=== PATIENT | female | born 1980 | race Asian ===

== ENCOUNTER 2016-12-03 19:38 | Emergency (ER) | payer OTHER ==
[~2016-12-03] VITALS: Ht 162.6 cm; Wt 74.7 kg
[~2016-12-03 19:38] MED LIST: PRENTAB26 PO
[2016-12-03 19:48] VITALS: TEMP 37; O2SAT 99; Ht 162.6 cm; Wt 74.7 kg
[2016-12-03] MEDS ORDERED: TRIAMCINOLONE ACET 0.1% CR 15 GM TUBE EXT STA (20:13)
[2016-12-03] MEDS ORDERED: DOXY100C76 PO (20:15)
[2016-12-03] MEDS ORDERED: DOXYCYCLINE HYCLATE 100 MG CAP PO ONE (20:15)
[2016-12-03 21:05] VITALS: BP 116/72; PULSE 84
--- NOTE | 2016-12-03 21:13 | EMERGENCY ROOM VISIT NOTE ---
History Report prepared by Dulce: Kaushal Biswas Under the Supervision of: Dr. Sherif Turcios M.D. First contact with patient: 20:00 Chief Complaint: BITE Stated Complaint: L SHOULDER PAIN History of Present Illness The patient is a 35 year old female who presents to the Emergency Room with complaints of a persistent rash on her left shoulder starting about a week ago. She describes it to be itchy with a burning pain. She has been applying an anti- itch cream without relief. She denies fevers, chills, or any other complaints. Source of History: patient Onset: about a week ago Position: shoulder (left) Quality: burning, other (rash) Timing: other (persistent) Modifying Factors (Relieving): other (anti-itch cream without relief) Associated Symptoms: No fevers, No chills Review of Systems See HPI for pertinent positives & negatives. A total of 10 systems reviewed and were otherwise negative. Past Medical & Surgical Medical Problems: (1) Abdominal pain during in third trimester (2) Decreased movement in (3) Leakage, amniotic fluid (4) Nausea and vomiting in (5) Pneumonia affecting (6) (7) Premature uterine contractions in third trimester, antepartum (8) labor in third trimester (9) Uterine contractions Family History Patient reports no known family medical history. Social History Smoking Status: Never Smoker Alcohol Use: none Marital Status: , in relationship Housing Status: lives with family Occupation Status: employed Current/Historical Medications Scheduled Doxycycline Monohydrate (Monodox), 100 MG PO BID Loratadine/Pseudoephedrine (Claritin-D 24 Hour), 1 TAB PO QAM Montelukast Sodium (Singulair), 10 MG PO HS Multivitamin (Multivitamin), 1 TAB PO QAM Ranitidine Hcl (Zantac), 300 MG PO HS Allergies Coded Allergies: Morphine (Verified Allergy, Mild, "CAN'T BREATHE" - PT THINKS WAS GIVEN TOO MUCH, 12/03/16) Physical Exam Vital Signs Date Time Temp Pulse Resp B/P (MAP) Pulse Ox O2 Delivery O2 Flow Rate FiO2 12/03/16 21:05 84 20 116/72 12/03/16 19:48 37.0 91 18 125/79 99 Room Air Physical Exam GENERAL: Patient is a healthy-appearing well-nourished HEAD: Normocephalic atraumatic EYES: Ocular movements intact pupils equal and react to light OROPHARYNX mucous membranes are moist no exudates present no erythema or edema present NECK: Supple no nuchal rigidity CHEST: Good equal expansion LUNGS: Clear and equal to auscultation CARDIAC: Normal S1 and S2 ABDOMEN: Soft nontender no guarding BACK: No CVA tenderness EXTREMITIES: No pain upon palpation normal muscle strength in all groups no clubbing cyanosis or edema NEURO: Patient is following commands and answering questions appropriately. Alert and oriented x3 Cranial Nerves 2-12 grossly intact SKIN: Urticarial rash about 2 inches by 2 inches in the left shoulder area, no evidence of abscess. Medical Decision & Procedures Medications Administered Medications (Trade) Dose Ordered Sig/Ezekiel Route Start Time Stop Time Status Last Admin Dose Admin Doxycycline Hyclate (Vibramycin Cap) 100 mg ONE ONCE PO 12/03/16 20:15 12/03/16 20:16 DC 12/03/16 20:23 100 MG Triamcinolone Acetonide (Kenalog 0.1% Cream) 1 appln NOW STAT EXT 12/03/16 20:13 12/03/16 20:14 DC 12/03/16 20:38 1 APPLN ED Course 2000: Past medical records reviewed. The patient was evaluated in room A09B. A complete history and physical examination was performed. 2013: Triamcinolone Acetonide 1 appln EXT 2015: Vibramycin Cap 100 mg PO 2030: Upon reexamination the patient is resting comfortably. I discussed results and treatment plan with the patient. She verbalizes agreement and understanding. The patient is ready for discharge. Medical Decision Differential diagnosis: Etiologies such as contact dermatitis, viral exanthem, urticaria, allergic reaction, Lockhart-Franki syndrome, toxic epidermal necrolysis, erythema multiforme, cellulitis, scabies, HSV, varicella, zoster, eczema, staph scalded skin syndrome, fungal infection, as well as others were entertained. This is a 35-year-old female who presents emergency department complaining of a very small area of rash to the left chest wall area. There is no evidence of abscess present. I will try place the patient on doxycycline I recommended a steroid cream for this rash. Patient was in agreement with the treatment plan. Medication Reconcilliation Current Medication List: was personally reviewed by me Blood Pressure Screening Patient's blood pressure: Normal blood pressure Impression Primary Impression: Cellulitis Scribe Attestation The scribe's documentation has been prepared under my direction and personally reviewed by me in its entirety. I confirm that the note above accurately reflects all work, treatment, procedures, and medical decision making performed by me. Departure Information Dispostion Home / Self-Care Prescriptions Doxycycline Monohydrate (Monodox) 100 Mg Cap 100 MG PO BID for 10 Days, #20 CAP Prov: Sherif Turcios MD 12/03/16 Referrals Juancarlos Carty M.D.([facility]) (PCP) Forms HOME CARE DOCUMENTATION FORM, IMPORTANT VISIT INFORMATION Patient Instructions My [facility] Additional Instructions Apply triamcinolone cream twice a day You have been examined and treated today on an emergency basis only. This is not a substitute for, or an effort to provide, complete comprehensive medical care. It is impossible to recognize and treat all injuries or illnesses in a single emergency department visit. It is therefore important that you follow up closely with Dr Carty. Call as soon as possible for an appointment. Thank you for your time and consideration. I look forward to speaking with you again soon. Please don't hesitate to call us if you have any questions. Problem Qualifiers Primary Impression: Cellulitis Site of cellulitis: trunk Site of cellulitis of trunk: chest wall Qualified Codes: L03.313 - Cellulitis of chest wall
[2017-01-27] MEDS ORDERED: MULT-506 PO (11:24)
[2017-01-27] MEDS ORDERED: RANI300T2 PO (13:35)
[2017-01-27] MEDS ORDERED: MONT1TAB3 PO (15:34)
[2017-01-27] MEDS ORDERED: LORA24TA7 PO (18:37)
== END 2016-12-03 21:07 | disposition home or self-care (01) ==
LOC: C.EDB 19:39 → C.EDA 21:07
DX: L03.313 Cellulitis of chest wall (principal); Z79.899 Other long term (current) drug therapy; Z88.5 Allergy status to narcotic agent

== ENCOUNTER → 2016-12-23 | Day surgery (SDC) | payer OTHER ==
[2016-11-27 11:25] VITALS: Ht 162.6 cm; Wt 72.7 kg
[~2016-12-23] VITALS: Ht 162.6 cm; Wt 72.7 kg
[~2016-12-23] MED LIST changes: +ATROPINE SULFATE 0.1 MG/ML 5ML SYR IV PRN; +CEPH500C PO; +DEXAMETHASONE SOD INJ 4 MG/ML VIAL ONE; +FENTANYL CITRATE INJ 50 MCG/1 ML 2 ML VIAL IV PRN; +FENTANYL CITRATE INJ 50 MCG/1 ML 2 ML VIAL ONE; +IBUPROFEN 600 MG TAB PO PRN; +KETOROLAC TROMETHAMINE 30 MG/ML VIAL IV. PRN; +LACTATED RINGER'S 1000ML 1,000 ML IV SCH; +LIDOCAINE HCL 2% 2 ML VIAL (20MG/ML) ONE; +LORA24TA7 PO; +METOCLOPRAMIDE HCL INJ 5 MG/ML 2 ML VIAL IV PRN; +MIDAZOLAM HCL 1 MG/ML 2ML VIAL ONE; +MONT1TAB3 PO; +MULT-506 PO; +ONDANSETRON INJ 2 MG/ML 2 ML VIAL IV PRN; +ONDANSETRON INJ 2 MG/ML 2 ML VIAL ONE; +OXYCODONE/ACETAMINOPHEN 5-325 TAB PO PRN; -PRENTAB26 PO; +PROPOFOL IV EMULSION 10 MG/ML 20 ML VIAL IV ONE; +RANI300T2 PO; +SODIUM CHLORIDE 0.9% 1000ML 1,000 ML IV SCH; +SUCCINYLCHOLINE CHLORIDE 20 MG/ML 10 ML VIAL IV ONE
--- NOTE | 2016-12-23 12:00 | History & Physical Bridge - SC ---
H&P Re-Evaluation Bridge Note: I have examined the patient, reviewed the History & Physical and in the interval since the performance of the History & Physical I have noted the following changes of clinical significance: No changes noted
--- NOTE | 2016-12-23 12:57 | Discharge Instructions-SurgCtr ---
Discharge Instructions Date of Service Dec 23, 2016. Visit Reason for Visit: Encounter For Contraceptive Mgmt Discharge Discharge Diagnosis / Problem: Bilateral salpingectomy / sterilization Discharge Goals Goal(s): Specific goals Activity Recommendations Activity Limitations: per Instructions/Follow-up section Anesthesia . Post Anesthesia Instructions: If you have had General Anesthesia or IV Sedation: * Do not drive today. * Resume driving when surgeon permits. * Do not make important decisions or sign legal documents today. * Call surgeon for: 1. Temperature elevations greater than 101 degrees F. 2. Uncontrollable pain. 3. Excessive bleeding. 4. Persistent nausea and vomiting. 5. Medication intolerance (nausea, vomiting or rash). * For nausea and vomiting use only clear liquids such as: tea, soda, bouillon until nausea subsides, then gradually increase diet as tolerated. * If you have any concerns or questions, call your surgeon's office. If physician is unavailable and it is an emergency, call 911 or go to the nearest emergency room. . Instructions / Follow-Up Instructions / Follow-Up ACTIVITY RECOMMENDATIONS: * Rest the first 2-3 days. You should be back to your normal activity levels by day 3. * No heavy lifting for 2 weeks. * No intercourse, tampons or douching for 1-2 weeks. * You may shower the next day. * Do not drive anytime that you are taking narcotic pain medicines. RETURN TO SCHOOL/WORK: * May return to school or work after 2-3 days. DIET: Nausea may occur in the immediate post-operative period. If so, take clear liquids such as tea, bouillon, apple juice until all nausea has subsided, then resume usual diet. MEDICATIONS: Resume previous medications unless instructed otherwise by your surgeon. Ibuprofen 200mg 2-3 tablets every 4-6 hours as needed -- OR -- Aleve 2 tablets every 8-12 hours as needed for post-operative discomfort Medications are over the counter. Tylenol may be used if above medications are contraindicated or not preferred. Medication should be taken with food or milk. Do not take on an empty stomach. SPECIAL CARE INSTRUCTIONS: * Check temperature twice daily for one week. report any elevation over 101 degrees. * You may experience some vagina spotting and/or bleeding. This is normal for 1 -2 weeks and should not be heavier than a normal period. If it is unusual in amount, call your physician. * Post-operative discomfort may consist of a sore throat, a "bloated" feeling and pain in the shoulders. these are normal symptoms, which usually only last for 2-3 days. * Remove band-aids tomorrow and shower. There is no need to replace band-aids unless there is drainage or discomfort. FOLLOW UP VISIT: Call your doctor's office for a post-operative 2 week visit if not already scheduled. Diet Recommendations Home Diet: resume previous diet Procedures Procedures Performed: Bilateral Salpingectomy Pending Studies Studies pending at discharge: no Medical Emergencies . Who to Call and When: Medical Emergencies: If at any time you feel your situation is an emergency, please call 911 immediately. . Non-Emergent Contact Non-Emergency issues call your: Primary Care Provider . . "Provider Documentation" section prepared by Letitia Renner. .
--- NOTE | 2016-12-23 13:33 | OPERATIVE REPORT ---
DATE OF OPERATION: 12/23/2016 PREOPERATIVE DIAGNOSES: 1. Desires sterilization. 2. Desires cancer risk reduction. POSTOPERATIVE DIAGNOSES: Same. PROCEDURE: Bilateral salpingectomy. SURGEON: Dr. Renner. ASSIST: None. ESTIMATED BLOOD LOSS: 5 mL. COMPLICATIONS: None. DISPOSITION: Stable to recovery. DESCRIPTION: Bela is a 36-year-old who desires sterilization, specifically via bilateral salpingectomy due to a concern that her mother had fallopian tube cancer and she wishes risk reduction for herself. She was brought to the operating room after consent was confirmed again in the preoperative area of the surgical center. She was placed on the table in the supine position. A Izquierdo was placed. The patient was then prepped and draped in standard sterile fashion and a hard time-out was taken prior to proceeding. An incision was made just below the umbilicus to allow placement of a 12 mm port, which was done in an optical manner without complication. The abdomen was insufflated. The pelvic organs were visualized. Under direct visualization, the right and left lower quadrant port each 5 mm were also placed. Some photographs were taken, showing both tubes appeared normal. Both ovaries appeared normal. There was a 3-4 cm paratubal cyst on the right side, associated with the right fallopian tube. Dissection began by elevating the right fallopian tube and dissecting it off the mesosalpinx using the LigaSure. Once this was done, the paratubal cyst was lanced and drained to allow decompression, so that the tube could be removed through the laparoscopic port. Similarly, then the left fallopian tube was elevated and dissected off the mesosalpinx using the LigaSure and once fully detached, it too was retrieved through the laparoscopic port. Both tubes were sent for pathology. The right tube is the one with the paratubal cyst. Good hemostasis was seen at all working sites, so the abdomen was allowed to desufflate. All ports were removed. A UR-6 was used with Vicryl suture to close the fascial layer at the umbilicus and then Dermabond was used to close all the skin level incisions. The Izquierdo was then removed before the patient was transferred in stable condition to the recovery room. I attest to the content of the Intraoperative Record and any orders documented therein. Any exception s are noted below.
[2016-12-23 14:24] VITALS: TEMP 36.6
[2016-12-23 14:41] VITALS: BP 123/84; PULSE 73; O2SAT 100
--- NOTE | 2016-12-23 14:42 | Anesthesia Progress Nt - [facility] ---
Anesthesia Post Op Note Date & Time Dec 23, 2016 at 14:42 Vital Signs Pain Intensity: 3 Vital Signs Past 12 Hours Date Time Temp Pulse Resp B/P (MAP) Pulse Ox O2 Delivery O2 Flow Rate FiO2 12/23/16 14:24 36.6 77 16 124/85 (98) 100 Room Air 12/23/16 14:15 36.6 58 16 137/84 100 Room Air 12/23/16 14:10 146/90 12/23/16 14:06 78 18 100 12/23/16 14:06 73 18 12/23/16 14:05 127/96 12/23/16 14:01 59 16 100 12/23/16 14:01 58 16 12/23/16 14:00 144/99 12/23/16 13:56 71 18 12/23/16 13:56 69 18 100 12/23/16 13:55 126/100 12/23/16 13:51 56 17 100 12/23/16 13:51 57 17 12/23/16 13:50 139/92 12/23/16 13:46 68 20 12/23/16 13:46 68 20 100 12/23/16 13:45 139/89 12/23/16 13:43 132/91 12/23/16 13:41 70 12 136/101 100 12/23/16 13:41 69 12 12/23/16 13:36 69 12 12/23/16 13:36 70 12 100 12/23/16 13:35 133/98 12/23/16 13:31 78 17 12/23/16 13:31 78 17 100 12/23/16 13:30 125/97 12/23/16 13:26 72 12 12/23/16 13:26 70 12 100 12/23/16 13:25 120/98 12/23/16 13:21 75 18 100 12/23/16 13:21 76 18 12/23/16 13:20 120/81 12/23/16 13:16 78 18 100 12/23/16 13:16 76 18 12/23/16 13:15 119/95 12/23/16 13:12 81 22 12/23/16 13:12 36.2 82 14 120/85 100 Mask 6 12/23/16 13:12 81 22 120/89 100 8/16/17 11:23 36.8 69 22 121/88 (99) 99 Room Air Notes Mental Status: alert / awake / arousable, participated in evaluation Pt Amnestic to Procedure: Yes Nausea / Vomiting: adequately controlled Pain: adequately controlled Airway Patency, RR, SpO2: stable & adequate BP & HR: stable & adequate Hydration State: stable & adequate Anesthetic Complications: no major complications apparent
== END | disposition home or self-care (01) ==
LOC: X.SURG 10:12
PROVIDERS: ATTEND Obstetrics & Gynecology
DX: Z30.2 Encounter for sterilization (principal); D28.2 Benign neoplasm of uterine tubes and ligaments; N83.8 Other noninflammatory disorders of ovary, fallopian tube and broad ligament; Z80.49 Family history of malignant neoplasm of other genital organs

== ENCOUNTER 2017-01-27 20:03 | Emergency (ER) | payer OTHER ==
[~2017-01-27] VITALS: Ht 162.6 cm; Wt 71.9 kg
[~2017-01-27 20:03] MED LIST changes: -ATROPINE SULFATE 0.1 MG/ML 5ML SYR IV PRN; -CEPH500C PO; -DEXAMETHASONE SOD INJ 4 MG/ML VIAL ONE; -FENTANYL CITRATE INJ 50 MCG/1 ML 2 ML VIAL IV PRN; -FENTANYL CITRATE INJ 50 MCG/1 ML 2 ML VIAL ONE; -IBUPROFEN 600 MG TAB PO PRN; -KETOROLAC TROMETHAMINE 30 MG/ML VIAL IV. PRN; -LACTATED RINGER'S 1000ML 1,000 ML IV SCH; -LIDOCAINE HCL 2% 2 ML VIAL (20MG/ML) ONE; -METOCLOPRAMIDE HCL INJ 5 MG/ML 2 ML VIAL IV PRN; -MIDAZOLAM HCL 1 MG/ML 2ML VIAL ONE; -ONDANSETRON INJ 2 MG/ML 2 ML VIAL IV PRN; -ONDANSETRON INJ 2 MG/ML 2 ML VIAL ONE; -OXYCODONE/ACETAMINOPHEN 5-325 TAB PO PRN; -PROPOFOL IV EMULSION 10 MG/ML 20 ML VIAL IV ONE; -SODIUM CHLORIDE 0.9% 1000ML 1,000 ML IV SCH; -SUCCINYLCHOLINE CHLORIDE 20 MG/ML 10 ML VIAL IV ONE
[2017-01-27 20:11] VITALS: TEMP 36.6; Ht 162.6 cm; Wt 71.9 kg
[2017-01-27] MEDS ORDERED: IBUPROFEN 600 MG TAB PO STA (22:29)
[2017-01-27] MEDS ORDERED: SODIUM CHLORIDE 0.9% 1000ML 1,000 ML IV STA ×2 (22:29)
[2017-01-27] MEDS ORDERED: COUGH DROP (SUGAR FREE) LOZ 24 LOZ/1 BOX PO STA (22:29)
[2017-01-27] MEDS ORDERED: ACETAMINOPHEN 500 MG TAB PO STA (22:29)
[2017-01-27 22:59] LABS: MANUAL MICROSCOPIC REQUIRED? NO; REVIEW REQ? NO; URINE APPEARANCE TURBID (CLEAR); URINE BILIRUBIN NEG (NEG); URINE COLOR YELLOW; URINE EPITHELIAL CELL AUTO >30 /lpf (0-5); URINE NITRITE NEG (NEG); URINE SPECIFIC GRAVITY 1.015 (1.000-1.030); UROBILINOGEN NEG (NEG); ZZUR CULT IF INDIC CLEAN CATCH YES
--- NOTE | 2017-01-27 23:04 | EMERGENCY ROOM VISIT NOTE ---
History Report prepared by Dulce: Vangie Jenikns Under the Supervision of: Dr. Cosme Arita M.D. First contact with patient: 21:29 Chief Complaint: ILLNESS Stated Complaint: CHEST PAIN/COLD History of Present Illness The patient is a 36 year old female with a past medical history of bronchitis, GERD, salpingectomy who presents to the ED with a cc of persistent illness beginning 2 days ago. Positive chills, cough productive of yellow sputum , sore throat, chest pain, SOB, leg pain, left ear pain, lower abdominal pain. Negative hemoptysis, urinary symptoms, change in BM. She denies any tobacco or drug use. She seldom drinks alcohol. 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 She denies any changes in cleaning products. She denies any recent car or plane travel. She is not on control. Source of History: patient Onset: 2 days ago Position: other (global) Quality: other (illness) Timing: other (persistent) Associated Symptoms: + chills, + sorethroat, + cough, + chest pain, + SOB, + abdominal pain, No urinary symptoms Note: Pt reports leg pain, left ear pain. Pt denies hemoptysis. Review of Systems See HPI for pertinent positives and negatives. A total of ten systems were reviewed and were otherwise negative. Past Medical & Surgical Medical Problems: (1) Abdominal pain during in third trimester (2) Decreased movement in (3) Leakage, amniotic fluid (4) Nausea and vomiting in (5) Pneumonia affecting (6) (7) Premature uterine contractions in third trimester, antepartum (8) labor in third trimester (9) Uterine contractions Family History Patient reports no known family medical history. Social History Smoking Status: Never Smoker Alcohol Use: none Marital Status: , in relationship Housing Status: lives with family Occupation Status: employed Current/Historical Medications Scheduled Cephalexin Monohydrate (Keflex), 500 MG PO BID Loratadine/Pseudoephedrine (Claritin-D 24 Hour), 1 TAB PO QAM Montelukast Sodium (Singulair), 10 MG PO HS Multivitamin (Multivitamin), 1 TAB PO QAM Ranitidine Hcl (Zantac), 300 MG PO HS Allergies Coded Allergies: Morphine (Verified Allergy, Mild, "CAN'T BREATHE" - PT THINKS WAS GIVEN TOO MUCH, 12/23/16) [id number]: [facility] CHECKED WITH DR MARTINEZ. PER DR MARTINEZ THE PATIENT RECEIVED TOO MUCH MORPHINE SO NO TRUE ALLERGY. Physical Exam Vital Signs Date Time Temp Pulse Resp B/P (MAP) Pulse Ox O2 Delivery O2 Flow Rate FiO2 01/28/17 00:39 88 20 128/76 98 01/27/17 23:12 82 20 121/89 100 01/27/17 21:41 98 18 141/88 100 Room Air 01/27/17 20:11 36.6 107 18 120/84 100 Room Air Physical Exam GENERAL: Awake, alert, well-appearing, NAD, flushed face HENT: Normocephalic, atraumatic. TM clear, no erythema, no effusion, no signs of otitis externa, posterior pharynx shows mild tonsillar swelling with exudate to the left tonsil, no uvular deviation, no posterior pharyngeal swelling, no stridor. EYES: Normal conjunctiva. Sclera non-icteric. NECK: Supple. No nuchal rigidity. FROM. RESPIRATORY: CTAB, no rhonchi, wheezing, crackles CARDIAC: Tachycardic rate, regular rhythm, no MRG ABDOMEN: Soft, mild suprapubic TTP, no RLQ TTP, negative obturators, negative psoas, ND, BS+ MSK: No chest wall TTP, diffuse bilateral LE pain, no erythema, calor, or asymmetry in size. NEURO: GCS 15, CN 2-12 intact, moves all 4s on command SKIN: No rash or jaundice noted. Medical Decision & Procedures ER Provider Diagnostic Interpretation: X-ray: Per my interpretation, radiologist review. Chest X-ray: Clear lung choi, costophrenic angles are visible, no evidence of pneumothorax or focal consolidation, gastric bubble beneath left hemidiaphragm, heart size normal. Laboratory Results 01/27/17 22:46 Red Blood Count 4.97, Mean Corpuscular Volume 85.7, Mean Corpuscular Hemoglobin 28.6, Mean Corpuscular Hemoglobin Concent 33.3, Mean Platelet Volume 8.7, Neutrophils (%) (Auto) 70.7, Lymphocytes (%) (Auto) 19.2, Monocytes (%) (Auto) 8.9, Eosinophils (%) (Auto) 0.5, Basophils (%) (Auto) 0.6, Neutrophils # (Auto) 5.83, Lymphocytes # (Auto) 1.58, Monocytes # (Auto) 0.73, Eosinophils # (Auto) 0.04, Basophils # (Auto) 0.05 01/27/17 22:46 Test 01/27/17 22:35 01/27/17 22:46 Urine Color YELLOW Urine Appearance TURBID (CLEAR) Urine pH 8.0 (4.5-7.5) Urine Specific [place] 1.015 (1.000-1.030) Urine Protein NEG (NEG) Urine Glucose (UA) NEG (NEG) Urine Ketones NEG (NEG) Urine Occult Blood NEG (NEG) Urine Nitrite NEG (NEG) Urine Bilirubin NEG (NEG) Urine Urobilinogen NEG (NEG) Urine Leukocyte Esterase MODERATE (NEG) Urine WBC (Auto) 10-30 /hpf (0-5) Urine RBC (Auto) 0-4 /hpf (0-4) Urine Hyaline Casts (Auto) 1-5 /lpf (0-5) Urine Epithelial Cells (Auto) >30 /lpf (0-5) Urine Bacteria (Auto) 1+ (NEG) Urine Test NEG (NEG) White Blood Count 8.24 K/uL (4.8-10.8) Red Blood Count 4.97 M/uL (4.2-5.4) Hemoglobin 14.2 g/dL (12.0-16.0) Hematocrit 42.6 % (37-47) Mean Corpuscular Volume 85.7 fL (80-100) Mean Corpuscular Hemoglobin 28.6 pg (25-34) Mean Corpuscular Hemoglobin Concent 33.3 g/dl (32-36) Platelet Count 340 K/uL (130-400) Mean Platelet Volume 8.7 fL (7.4-10.4) Neutrophils (%) (Auto) 70.7 % Lymphocytes (%) (Auto) 19.2 % Monocytes (%) (Auto) 8.9 % Eosinophils (%) (Auto) 0.5 % Basophils (%) (Auto) 0.6 % Neutrophils # (Auto) 5.83 K/uL (1.4-6.5) Lymphocytes # (Auto) 1.58 K/uL (1.2-3.4) Monocytes # (Auto) 0.73 K/uL (0.11-0.59) Eosinophils # (Auto) 0.04 K/uL (0-0.5) Basophils # (Auto) 0.05 K/uL (0-0.2) RDW Standard Deviation 38.0 fL (36.4-46.3) RDW Coefficient of Variation 12.2 % (11.5-14.5) Immature Granulocyte % (Auto) 0.1 % Immature Granulocyte # (Auto) 0.01 K/uL (0.00-0.02) Anion Gap 6.0 mmol/L (3-11) Est Creatinine Clear Calc Drug Dose 103.0 ml/min Estimated GFR () 123.1 Estimated GFR (Non- 106.2 BUN/Creatinine Ratio 7.9 (10-20) Calcium Level 9.0 mg/dl (8.5-10.1) Laboratory results reviewed by me Medications Administered Medications (Trade) Dose Ordered Sig/Ezekiel Route Start Time Stop Time Status Last Admin Dose Admin Sodium Chloride 1,000 ml @ 999 mls/hr Q1H1M STAT IV 01/27/17 22:29 01/27/17 23:29 DC 01/27/17 22:59 999 MLS/HR Ibuprofen (Motrin Tab) 600 mg NOW STAT PO 01/27/17 22:29 01/27/17 22:32 DC 01/27/17 22:58 600 MG Acetaminophen (Tylenol Tab) 1,000 mg NOW STAT PO 01/27/17 22:29 01/27/17 22:32 DC 01/27/17 22:59 1,000 MG Menthol (Nice Nasima) 1 nasima NOW STAT PO 01/27/17 22:29 01/27/17 22:32 DC 01/27/17 22:57 1 NASIMA Sodium Chloride 1,000 ml @ 999 mls/hr Q1H1M STAT IV 01/27/17 22:29 01/27/17 23:29 DC 01/27/17 23:13 999 MLS/HR Ceftriaxone Sodium (Rocephin Inj) 1 gm NOW STAT IV 01/27/17 23:20 01/27/17 23:21 DC 01/27/17 23:57 1 GM ECG Indication: chest pain Rate (beats per minute): 89 Rhythm: normal sinus Findings: other (normal intervals, normal axis, no STS changes or TWI) ED Course 2213: The patient was evaluated in room B9. A complete history and physical exam was performed. 2345: I reevaluated the patient. I discussed results and discharge instructions : she verbalized understanding and agreement. The patient is ready for discharge. Medical Decision Differential diagnosis: URI, pharyngitis, strep, pneumonia, bronchitis, UTI. The patient is a 36 year old female with a past medical history of bronchitis, GERD, salpingectomy who presents to the ED with a cc of persistent illness beginning 2 days ago. Patient was seen and evaluated bedside. Patient did have some mild tachycardia and did appear flushed. Patient was seen at urgent care but stated that they could not rule out things like pulmonary embolus. Patient did complain of some lower extremity pain however this appeared to be generalized and more consistent with possible generalized body aches and not with any sort of unilateral asymmetric swelling of the lower extremity. Other than her tachycardia patient had no other concerning signs or symptoms consistent with possible DVT or PE. Patient did have some chest pain that was exacerbated with cough. Patient did complain of some URI symptoms in addition to sore throat and left ear pain. Patient did have some mild tonsillitis with some tonsillar exudate of the left tonsil but had a clear TM on the left side. Patient's chest x-ray was interpreted by me and did not appear to have any acute infection. She was feeling much improved patient's tachycardia resolved with fluids. Patient did have a negative rapid strep. Patient did complain of some mild suprapubic pain and her UA displayed concerns for infection even if w/ skin contaminant given patient's suprapubic pain, the patient was given Rocephin and was deemed stable for outpatient treatment. Patient was feeling much improved. Given the patient's response to symptomatically treatment and resolution of tachycardia less likely to be PE or DVT especially in light of infectious symptoms as well as the physical exam. Patient had a fairly normal EKG no acute concerns or ischemia at this time. Patient was given strict follow -up, discharge, and return precautions. Patient agreed with plan of care patient was safely discharged home. Medication Reconcilliation Current Medication List: was personally reviewed by me Blood Pressure Screening Patient's blood pressure: Normal blood pressure Blood pressure disposition: Did not require urgent referral Impression Primary Impression: UTI (urinary tract infection) Scribe Attestation The scribe's documentation has been prepared under my direction and personally reviewed by me in its entirety. I confirm that the note above accurately reflects all work, treatment, procedures, and medical decision making performed by me. Departure Information Dispostion Home / Self-Care Prescriptions Cephalexin Monohydrate (Keflex) 500 Mg Cap 500 MG PO BID for 7 Days, #14 CAP Prov: Cosme Arita M.D. 01/28/17 Referrals Juancarlos Carty M.D.([facility]) (PCP) Patient Instructions ED UTI Cystitis Female, My [facility] Additional Instructions Please return to the emergency department if you have worsening or recurrent symptoms not amenable to at-home treatment. Please call for a follow-up appointment with her primary care physician. Please take your medications as prescribed. If you have other concerns and/or complaints please feel free to also call your primary care physician's office or return the ED for further evaluation, management, and treatment. You were found to have an elevated blood pressure today (>120 sytolic or >90 diastolic). Per medicare guidelines, you need to follow up with this blood pressure screening with your Primary Care Physician (PCP). For a new PCP call [phone]. You received narcotic or benzodiazepene medication while in the emergency room today. This is an addictive medication that may cause drowziness as well as constipation. Do not drive, operate heavy machinery, or drink alcohol under the influence of this medication. You may take 600 mg Ibuprofen every 6 hours as needed for pain with food for no more than 2 consecutive days. You may take tylenol 1000mg every 6 hours as needed for pain. You may take motrin and tylenol separately or at the same time. Take antibiotics as prescribed and with food. You may take a probiotic and /or yogurt to help replenish healthy gut bacteria. You have been examined and treated today on an emergency basis only. This is not a substitute for, or an effort to provide, complete comprehensive medical care. It is impossible to recognize and treat all injuries or illnesses in a single emergency department visit. It is therefore important that you follow up closely with [facility]. Call as soon as possible for an appointment. Thank you for your time and consideration. I look forward to speaking with you again soon. Please don't hesitate to call us if you have any questions. Work Instructions Return To Work: 1 day Specific Date: 01/30/17 Problem Qualifiers Primary Impression: UTI (urinary tract infection) Urinary tract infection type: acute cystitis Hematuria presence: without hematuria Qualified Codes: N30.00 - Acute cystitis without hematuria
[2017-01-27 23:11] LABS: BASO % 0.6 %; BASO ABS # 0.05 K/uL (0-0.2); COMPLETE YES; EOS % 0.5 %; HEMATOCRIT 42.6 % (37-47); IG% 0.1 %; LYMPH % 19.2 %; LYMPH ABS # 1.58 K/uL (1.2-3.4); MEAN CELL VOLUME 85.7 fL (80-100); MEAN CORPUSCULAR HEMOGLOBIN 28.6 pg (25-34); MEAN CORPUSCULAR HGB CONC 33.3 g/dl (32-36); MEAN PLATELET VOLUME 8.7 fL (7.4-10.4); MONO % 8.9 %; NEUT % 70.7 %; PLATELET COUNT 340 K/uL (130-400); RED BLOOD COUNT 4.97 M/uL (4.2-5.4); WHITE BLOOD COUNT 8.24 K/uL (4.8-10.8)
[2017-01-27] MEDS ORDERED: CEFTRIAXONE SOD INJ 1 GM ADDVIAL IV STA (23:20)
[2017-01-27 23:28] LABS: BUN/CREATININE RATIO 7.9 (10-20); CREATININE 0.72 mg/dl (0.60-1.20); POTASSIUM 3.4 mmol/L (3.5-5.1)
[2017-01-28] MEDS ORDERED: CEPH500C PO (00:18)
[2017-01-28 00:39] VITALS: BP 128/76; PULSE 88; O2SAT 98
--- NOTE | 2017-01-28 06:33 | DIAGNOSTIC IMAGING REPORT ---
CHEST 2 VIEWS ROUTINE CLINICAL HISTORY: Cough. Chest pain. Sputum. COMPARISON STUDY: Chest radiograph May 14, 2015. FINDINGS: Lung volumes are normal. Lungs are clear. No pneumothorax or pleural effusion is present. Pulmonary vascularity is normal. Cardiomediastinal silhouette is normal. IMPRESSION: No acute cardiopulmonary findings. Electronically signed by: Carter Hartman M.D. 01/28/2017 6:31 AM Dictated Date/Time: 01/28/2017 6:31 AM
== END 2017-01-28 00:40 | disposition home or self-care (01) ==
LOC: C.EDB 20:04
DX: N30.00 Acute cystitis without hematuria (principal); K21.9 Gastro-esophageal reflux disease without esophagitis

== ENCOUNTER 2017-09-13 20:07 | Emergency (ER) | payer OTHER ==
[~2017-09-13] VITALS: Ht 162.6 cm; Wt 73.6 kg
[2017-09-13 20:12] VITALS: TEMP 36.6; Ht 162.6 cm; Wt 73.6 kg
[2017-09-13] MEDS ORDERED: KETOROLAC TROMETHAMINE 30 MG/ML VIAL IV STA (20:18)
[2017-09-13] MEDS ORDERED: SODIUM CHLORIDE 0.9% 1000ML 1,000 ML IV STA (20:18)
--- NOTE | 2017-09-13 20:30 | EMERGENCY ROOM VISIT NOTE ---
History Report prepared by Dulce: Stef Wolff Under the Supervision of: Dr. Ilia Tsang M.D. First contact with patient: 20:17 Chief Complaint: FLANK PAIN Stated Complaint: R SIDE PAIN History of Present Illness The patient is a 36 year old female who presents to the Emergency Room with complaints of worsening right sided abdominal pain beginning three days ago. 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 She reports her symptoms radiate to her back and bending worsens her symptoms. The patient notes eating causes her symptoms to intensify. She states she was eating a piece of candy when her symptoms worsened this evening. The patient denies a history of this before. She reports she thought it was a pulled muscle. The patient notes she still has her appendix and gallbladder. She states she had her fallopian tubes removed recently and did not know if it was from that. The patient reports her LNMP was a week ago. She denies urine in her blood, cough, congestion, nausea, vomiting, diarrhea, pain with urination, fevers, chills, and being evaluated by her PCP. Source of History: patient Onset: three days ago Position: abdomen (right side) Timing: worsening Modifying Factors (Worsening): eating, movement (bending) Associated Symptoms: + back pain, No fevers, No chills, No cough, No nausea , No vomiting, No diarrhea Note: Denies: blood and pain with urination Review of Systems See HPI for pertinent positives and negatives. A total of ten systems were reviewed and were otherwise negative. Past Medical & Surgical Medical Problems: (1) Abdominal pain during in third trimester (2) Decreased movement in (3) Leakage, amniotic fluid (4) Nausea and vomiting in (5) Pneumonia affecting (6) (7) Premature uterine contractions in third trimester, antepartum (8) labor in third trimester (9) Uterine contractions Family History Cancer Diabetes mellitus Heart disease Hypertension Stroke Social History Smoking Status: Never Smoker Alcohol Use: none Marital Status: , in relationship Housing Status: lives with family Occupation Status: employed Current/Historical Medications Scheduled Loratadine/Pseudoephedrine (Claritin-D 24 Hour), 1 TAB PO QAM Montelukast Sodium (Singulair), 10 MG PO HS [Acid Reflux Tab], 1 TAB PO QPM Allergies Coded Allergies: Morphine (Verified Allergy, Mild, "CAN'T BREATHE" - PT THINKS WAS GIVEN TOO MUCH, 12/23/16) [id number]: [facility] CHECKED WITH DR MARTINEZ. PER DR MARTINEZ THE PATIENT RECEIVED TOO MUCH MORPHINE SO NO TRUE ALLERGY. Physical Exam Vital Signs Date Time Temp Pulse Resp B/P (MAP) Pulse Ox O2 Delivery O2 Flow Rate FiO2 09/13/17 22:04 83 18 113/78 100 09/13/17 20:12 36.6 96 18 130/77 100 Room Air Physical Exam GENERAL: Awake, alert, in no distress HENT: Normocephalic, atraumatic. Oropharynx has dry mucus membranes otherwise unremarkable. EYES: Normal conjunctiva. Sclera non-icteric. NECK: Supple. No nuchal rigidity. FROM. No JVD. RESPIRATORY: Clear to auscultation. CARDIAC: Regular rate, normal rhythm. Extremities warm and well perfused. Pulses equal. ABDOMEN: Soft, non-distended. RUQ discomfort with no discrete tenderness to palpation. No rebound or guarding. No masses. RECTAL: Deferred. MUSCULOSKELETAL: Chest examination reveals no tenderness. The back is symmetrical on inspection without obvious abnormality. There is no CVA tenderness to palpation. No joint edema. LOWER EXTREMITIES: Calves are equal size bilaterally and non-tender. No edema. No discoloration. NEURO: Normal sensorium. No sensory or motor deficits noted. SKIN: No rash or jaundice noted. Medical Decision & Procedures ER Provider Diagnostic Interpretation: Radiology results as stated below per my review and radiologist interpretation: GALLBLADDER-ABD LIMITED CLINICAL HISTORY: RUQ pain pain. Nausea. TECHNIQUE: Ultrasound COMPARISON STUDY: 05/14/2015 FINDINGS: Gallbladder is normal. No shadowing gallstones. Common bile duct 4 mm. Liver is uniform throughout. Pancreas and right kidney are unremarkable. No evidence for hydronephrosis. IMPRESSION: Normal study The above report was generated using voice recognition software. It may contain grammatical, syntax or spelling errors. Electronically signed by: Mario Lion M.D. 09/13/2017 9:25 PM Dictated Date/Time: 09/13/2017 9:24 PM Laboratory Results 09/13/17 20:35 Red Blood Count 4.43, Mean Corpuscular Volume 83.1, Mean Corpuscular Hemoglobin 27.5, Mean Corpuscular Hemoglobin Concent 33.2, Mean Platelet Volume 8.4, Neutrophils (%) (Auto) 50.9, Lymphocytes (%) (Auto) 37.6, Monocytes (%) (Auto) 8.1, Eosinophils (%) (Auto) 2.4, Basophils (%) (Auto) 0.8, Neutrophils # (Auto) 3.01, Lymphocytes # (Auto) 2.22, Monocytes # (Auto) 0.48, Eosinophils # (Auto) 0.14, Basophils # (Auto) 0.05 09/13/17 20:35 Test 09/13/17 20:20 09/13/17 20:35 Urine Color [place] YELLOW Urine Appearance CLEAR (CLEAR) Urine pH 5.5 (4.5-7.5) Urine Specific [place] 1.027 (1.000-1.030) Urine Protein NEG (NEG) Urine Glucose (UA) NEG (NEG) Urine Ketones NEG (NEG) Urine Occult Blood NEG (NEG) Urine Nitrite NEG (NEG) Urine Bilirubin NEG (NEG) Urine Urobilinogen NEG (NEG) Urine Leukocyte Esterase NEG (NEG) Urine Test NEG (NEG) White Blood Count 5.91 K/uL (4.8-10.8) Red Blood Count 4.43 M/uL (4.2-5.4) Hemoglobin 12.2 g/dL (12.0-16.0) Hematocrit 36.8 % (37-47) Mean Corpuscular Volume 83.1 fL (80-100) Mean Corpuscular Hemoglobin 27.5 pg (25-34) Mean Corpuscular Hemoglobin Concent 33.2 g/dl (32-36) Platelet Count 380 K/uL (130-400) Mean Platelet Volume 8.4 fL (7.4-10.4) Neutrophils (%) (Auto) 50.9 % Lymphocytes (%) (Auto) 37.6 % Monocytes (%) (Auto) 8.1 % Eosinophils (%) (Auto) 2.4 % Basophils (%) (Auto) 0.8 % Neutrophils # (Auto) 3.01 K/uL (1.4-6.5) Lymphocytes # (Auto) 2.22 K/uL (1.2-3.4) Monocytes # (Auto) 0.48 K/uL (0.11-0.59) Eosinophils # (Auto) 0.14 K/uL (0-0.5) Basophils # (Auto) 0.05 K/uL (0-0.2) RDW Standard Deviation 37.6 fL (36.4-46.3) RDW Coefficient of Variation 12.4 % (11.5-14.5) Immature Granulocyte % (Auto) 0.2 % Immature Granulocyte # (Auto) 0.01 K/uL (0.00-0.02) Anion Gap 8.0 mmol/L (3-11) Est Creatinine Clear Calc Drug Dose 105.6 ml/min Estimated GFR () 125.2 Estimated GFR (Non- 108.1 BUN/Creatinine Ratio 13.7 (10-20) Calcium Level 8.5 mg/dl (8.5-10.1) Total Bilirubin 0.2 mg/dl (0.2-1) Direct Bilirubin < 0.1 mg/dl (0-0.2) Aspartate Amino Transf (AST/SGOT) 11 U/L (15-37) Alanine Aminotransferase (ALT/SGPT) 18 U/L (12-78) Alkaline Phosphatase 117 U/L (45-117) Total Protein 7.5 gm/dl (6.4-8.2) Albumin 3.6 gm/dl (3.4-5.0) Lipase 210 U/L (73-393) Human Chorionic Gonadotropin, Qual NEG (NEG) Laboratory results reviewed by me Medications Administered Medications (Trade) Dose Ordered Sig/Ezekiel Route Start Time Stop Time Status Last Admin Dose Admin Sodium Chloride 1,000 ml @ 999 mls/hr Q1H1M STAT IV 09/13/17 20:18 09/13/17 21:18 DC 09/13/17 20:37 999 MLS/HR Ketorolac Tromethamine (Toradol Inj) 15 mg NOW STAT IV 09/13/17 20:18 09/13/17 20:25 DC 09/13/17 20:38 15 MG ED Course 2016: The patient was evaluated in room C11B. A complete history and physical exam was performed. 2023: I performed a bedside ultrasound of the gallbladder. There was no gallstones or pericholecystic fluid noted. 2135: I reevaluated the patient. Discussed results and discharge instructions: she verbalized understanding and agreement. The patient is ready for discharge. Medical Decision I reviewed the patient's past medical history, medications, and the nursing notes as described above. Differential diagnosis: Etiologies such as appendicitis, diverticulitis, PUD, biliary pathology, UTI, pancreatitis, obstruction, mesenteric ischemia, aortic pathology, infections, inflammatory bowel disease, renal colic, as well as others were entertained. The patient is a 36 y/o woman who presents to the emergency department with with right sided upper abdominal pain x 3 days per HPI. On arrival the patient is in NAD, AFVSS. On exam the patient has RUQ discomfort but no discrete ttp. Bedside RUQ US unremarkable. Bedside renal US negative for hydro. Formal RUQ US also unremarkable without gall stones or pericholecystic fluid. Labs unremarkable including wbc wnl. UA negative. Patient feeling improved after IVF and toradol. Sx most likely muscular given onset was at work when she was bending down. Plan for pcp f/u. Findings and plan for follow-up reviewed with patient. Patient agreeable and d/c'd per discharge instructions. Medication Reconcilliation Current Medication List: was personally reviewed by me Blood Pressure Screening Patient's blood pressure: Normal blood pressure Blood pressure disposition: Did not require urgent referral Impression Primary Impression: Right sided abdominal pain Scribe Attestation The scribe's documentation has been prepared under my direction and personally reviewed by me in its entirety. I confirm that the note above accurately reflects all work, treatment, procedures, and medical decision making performed by me. Departure Information Dispostion Home / Self-Care Referrals Juancarlos Carty M.D.([facility]) (PCP) Forms HOME CARE DOCUMENTATION FORM, IMPORTANT VISIT INFORMATION Patient Instructions ED Abdominal Pain Unkn Cause, ED Strain Abdominal Muscle, My [facility] Additional Instructions Please follow up with your primary care physician in the next 1-3 days for re- evaluation. The cause of your symptoms is unclear at this time but may be abdominal wall muscle strain. Otherwise, your exam, lab results, and ultrasound did not show signs of an emergent condition at this time. Acetaminophen or ibuprofen for pain and fevers as needed. Drink plenty of fluids to ensure hydration. Return to the emergency department for worsening symptoms as described in the accompanying instructions.
[2017-09-13 20:53] LABS: BASO % 0.8 %; BASO ABS # 0.05 K/uL (0-0.2); EOS % 2.4 %; EOS ABS # 0.14 K/uL (0-0.5); HEMATOCRIT 36.8 % (37-47); HEMOGLOBIN 12.2 g/dL (12.0-16.0); IG# 0.01 K/uL (0.00-0.02); LYMPH % 37.6 %; LYMPH ABS # 2.22 K/uL (1.2-3.4); MEAN CELL VOLUME 83.1 fL (80-100); MEAN CORPUSCULAR HEMOGLOBIN 27.5 pg (25-34); MEAN CORPUSCULAR HGB CONC 33.2 g/dl (32-36); MEAN PLATELET VOLUME 8.4 fL (7.4-10.4); MONO % 8.1 %; MONO ABS # 0.48 K/uL (0.11-0.59); NEUT % 50.9 %; NEUT ABS # 3.01 K/uL (1.4-6.5); PLATELET COUNT 380 K/uL (130-400); RED CELL DISTRIBUTION WIDTH CV 12.4 % (11.5-14.5); RED CELL DISTRIBUTION WIDTH SD 37.6 fL (36.4-46.3); WHITE BLOOD COUNT 5.91 K/uL (4.8-10.8)
[2017-09-13 21:12] LABS: ALBUMIN 3.6 gm/dl (3.4-5.0); ALT/SGPT 18 U/L (12-78); AST/SGOT 11 U/L (15-37); BLOOD UREA NITROGEN 10 mg/dl (7-18); CALCIUM 8.5 mg/dl (8.5-10.1); CARBON DIOXIDE 25 mmol/L (21-32); CREATININE 0.71 mg/dl (0.60-1.20); GLUCOSE 114 mg/dl (70-99); LIPASE 210 U/L (73-393); POTASSIUM 3.6 mmol/L (3.5-5.1); SODIUM 140 mmol/L (136-145)
[2017-09-13 21:15] LABS: ALKALINE PHOSPHATASE 117 U/L (45-117); TOTAL PROTEIN 7.5 gm/dl (6.4-8.2)
[2017-09-13] MEDS ORDERED: ACID REFLUX TAB PO (21:19)
--- NOTE | 2017-09-13 21:26 | DIAGNOSTIC IMAGING REPORT ---
GALLBLADDER-ABD LIMITED CLINICAL HISTORY: RUQ pain pain. Nausea. TECHNIQUE: Ultrasound COMPARISON STUDY: 05/14/2015 FINDINGS: Gallbladder is normal. No shadowing gallstones. Common bile duct 4 mm. Liver is uniform throughout. Pancreas and right kidney are unremarkable. No evidence for hydronephrosis. IMPRESSION: Normal study The above report was generated using voice recognition software. It may contain grammatical, syntax or spelling errors. Electronically signed by: Mario Lion M.D. 09/13/2017 9:25 PM Dictated Date/Time: 09/13/2017 9:24 PM
[2017-09-13 22:04] VITALS: BP 113/78; PULSE 83; O2SAT 100
== END 2017-09-13 22:05 | disposition home or self-care (01) ==
LOC: C.EDB 20:08 → C.EDC 22:05
DX: R10.11 Right upper quadrant pain (principal); Z88.6 Allergy status to analgesic agent; Z82.49 Family history of ischemic heart disease and other diseases of the circulatory system; Z83.3 Family history of diabetes mellitus

== ENCOUNTER 2020-01-01 05:33 | Observation (INO) ==
--- NOTE | 2019-12-11 12:16 | PAT Medication Instructions ---
Medication Instructions Date of Service December 11, 2019 Home Medications fluticasone propionate [Flonase Allergy Relief] 2 spry JAKOB BID pantoprazole 40 mg PO QPM montelukast [Singulair] 10 mg PO QAM acetaminophen [Tylenol] 325 mg PO QID PRN ascorbic acid (vitamin C) [Vitamin C] 250 mg PO QAM DO NOT take the morning of surgery montelukast [Singulair] 10 mg PO QAM ascorbic acid (vitamin C) [Vitamin C] 250 mg PO QAM Take morning of surgery With a small sip of water, OTHERWISE NOTHING TO EAT OR DRINK AFTER MIDNIGHT: fluticasone propionate [Flonase Allergy Relief] 2 spry JAKOB BID acetaminophen [Tylenol] 325 mg PO QID PRN (okay to take up to 4 hours prior to surgery if needed) Take evening before surgery fluticasone propionate [Flonase Allergy Relief] 2 spry JAKOB BID pantoprazole 40 mg PO QPM acetaminophen [Tylenol] 325 mg PO QID PRN (if needed) Other Notes If you have any questions please call us at [phone] or [phone] or [phone] or [phone]
--- NOTE | 2019-12-12 14:08 | Anesthesiology Consultation ---
Date of Service December 12, 2019 Assessment & Plan (1) Encounter for pre-operative examination: Per PAT assessment on 12/11: Travel screen negative. No known COVID-19 positive contacts. No current COVID-19 related symptoms. Surgeon arranging preop COVID testing (12/26, [place]). Awaiting results. - Anemia: hx of anemia worsening in setting of menorrhagia (reason for upcoming surgery). HGB 8.5 on preop labs. Surgeon's office made aware of preop CBC results. At anesthesiologist/surgeon discretion AM DOS if recheck CBC needed. Chart Review Chart Review: Acceptable Risk for Surgery and Patient seen in Pre Admission Testing Teaching & Discussion Pre-Anesthesia Teaching/Discussion Notes: Instructed NPO after midnight before surgery,except medications with 15 cc of water. Medication instructions provided according to the PAT guidelines. History Surgery Operation Date: 01/01/20 07:30 Proposed Procedures p Robotic Total Laparoscopic Hysterectomy - Wayne Cruz MD Height/Weight Height: 5 ft 4 in Weight: 87.7 kg Allergies Allergy/AdvReac Type Severity Reaction Status Date / Time morphine Allergy Mild Verified 12/12/19 13:00 Medications Home Medications Medication Instructions Recorded Confirmed Last Taken fluticasone propionate [Flonase 2 spry JAKOB BID #0 11/13/17 12/12/19 07/24/18 Allergy Relief] pantoprazole 40 mg PO QPM 04/27/18 12/12/19 07/23/18 montelukast [Singulair] 10 mg PO QAM 08/22/18 12/12/19 Unknown acetaminophen [Tylenol] 325 mg PO QID PRN 12/04/19 12/12/19 Unknown ascorbic acid (vitamin C) [Vitamin 250 mg PO QAM 12/04/19 12/12/19 Unknown C] Past Medical History Medical History Anemia GERD (gastroesophageal reflux disease) Menorrhagia Migraine Obesity Exercise / Class Metabolic Activity II 4-5 Yardwork/Stairs/Walk up hill Past Family History Family History Family/Other Lung disease Grandmother (Paternal) Colorectal cancer Aunt Colorectal cancer Diabetes Family/Other Dyslipidemia Mother Fallopian tube carcinoma Hypertension Gastric cancer Father Hypertension Other Cancer Heart disease Past Surgical History Surgical History History of bilateral tubal ligation History of cholecystectomy History of dilatation and curettage History of tonsillectomy and adenoidectomy History of tooth extraction Slow to wake up after anesthesia Past Anesthesia History No Family Hx of Anesthesia Complications and Other ("slow to wake" ) History of PONV No Hx of PONV and No Hx of Motion Sickness Social History Smoking Status: Never smoker Do You Dip or Chew Tobacco: No Hx Alcohol Use: Yes alcohol intake frequency: holidays/special occasions only Hx Substance Use: No substance use type: does not use Review of Systems Patient denies chest pain, shortness of breath, dyspnea on exertion, joint pain, reflux, cough, wheezing, palpitations. Physical Exam Vital Signs VITALS BP 114/76 P 78 TEMP 98.4 SP02 100%RA RESP 16 PHYSICAL Full neck and c-spine range of motion. Full TMJ range of motion. TMD 3 finger breaths Mallampati Score 2 Dentition: several missing teeth Lungs: clear throughout to auscultation Cardiac: regular rate and rhythm, no murmurs noted Spine: normal Extremities: no edema Testing Laboratory Results 12/12/19 14:31 Blood Type A Positive 12/12/19 14:31 Antibody Screen NEGATIVE 12/12/19 14:31 hx of anemia worsening in setting of menorrhagia (reason for upcoming surgery). Surgeon's office made aware of preop CBC results.
[2019-12-12 16:44] LABS: Acanthocytes 1+; Basophils # (auto) 0.04 K/uL (0-0.2); Basophils % (auto) 0.8 %; Eosinophils # (auto) 0.14 K/uL (0-0.5); Eosinophils % (auto) 2.8 %; Hematocrit (blood only) 29.4 % (37-47); Hemoglobin 8.5 g/dL (12.0-16.0); Hypochromasia Present; Lymphocytes # (auto) 1.94 K/uL (1.2-3.4); Lymphocytes % (auto) 39.2 %; Mean Corpuscular Hemoglobin 18.3 pg (25-34); Mean Corpuscular Hgb Conc 28.9 g/dL (32-36); Mean Corpuscular Volume 63.4 fL (80-100); Mean Platelet Volume 8.8 fL (7.4-10.4); Microcytosis Present; Monocytes # (auto) 0.46 K/uL (0.11-0.59); Monocytes % (auto) 9.3 %; Neutrophils # (auto) 2.37 K/uL (1.4-6.5); Neutrophils % (auto) 47.9 %; Ovalocytes 1+; Platelet Count 631 K/uL (130-400); RDW Coefficient of Variation 18.4 % (11.5-14.5); RDW Standard Deviation 42.4 fL (36.4-46.3); Red Blood Count 4.64 M/uL (4.2-5.4); White Blood Count 4.95 K/uL (4.8-10.8)
[~2020-01-01 05:33] MED LIST changes: -LORA24TA7 PO; +MISSING PHYSICIAN SIGNATURE ON ORDER SCH; -MONT1TAB3 PO; -MULT-506 PO; -RANI300T2 PO
[2020-01-01] MEDS ORDERED: LACTATED RINGER'S 1,000 ML IV SCH (06:00)
[2020-01-01] MEDS ORDERED: LR 15ML/HR IV SCH (06:00)
[2020-01-01] MEDS ORDERED: CEFAZOLIN 3000MG 72.5 ML IV SCH (06:00)
[2020-01-01] MEDS ORDERED: PHENAZOPYRIDINE HCL 100 MG TAB PO ONE (06:00)
[2020-01-01 06:28] LABS: Hematocrit (blood only) 28.3 % (37-47); Hemoglobin 8.1 g/dL (12.0-16.0); Mean Corpuscular Hemoglobin 18.3 pg (25-34); Mean Corpuscular Hgb Conc 28.6 g/dL (32-36); Mean Corpuscular Volume 63.9 fL (80-100); Mean Platelet Volume 8.1 fL (7.4-10.4); Platelet Count 530 K/uL (130-400); RDW Coefficient of Variation 18.9 % (11.5-14.5); RDW Standard Deviation 44.3 fL (36.4-46.3); Red Blood Count 4.43 M/uL (4.2-5.4); White Blood Count 5.46 K/uL (4.8-10.8)
[2020-01-01 06:29] LABS: Basophils % (auto) 1.8 %; Eosinophils # (auto) 0.17 K/uL (0-0.5); Eosinophils % (auto) 3.1 %; Hypochromasia Present; Lymphocytes # (auto) 1.86 K/uL (1.2-3.4); Lymphocytes % (auto) 34.1 %; Monocytes # (auto) 0.56 K/uL (0.11-0.59); Monocytes % (auto) 10.3 %; Neutrophils # (auto) 2.77 K/uL (1.4-6.5); Neutrophils % (auto) 50.7 %
[2020-01-01] MEDS ORDERED: ONDANSETRON INJ 2 MG/ML 2 ML VIAL ONE (07:01)
[2020-01-01] MEDS ORDERED: fentaNYL citrate 100 MCG/2 ML VIAL ONE (07:01)
[2020-01-01] MEDS ORDERED: MIDAZOLAM HCL 1 MG/ML 2ML VIAL ONE (07:01)
[2020-01-01] MEDS ORDERED: PROPOFOL IV EMULSION 10 MG/ML 20 ML VIAL IV ONE (07:01)
[2020-01-01] MEDS ORDERED: NEOSTIGMINE METHYLSULFATE 5 MG/5 ML SYR ONE (07:01)
[2020-01-01] MEDS ORDERED: DEXAMETHASONE SOD INJ 4 MG/ML VIAL ONE (07:01)
[2020-01-01] MEDS ORDERED: LIDOCAINE HCL 2% 2 ML VIAL/AMP(20MG/ML) INFIL ONE (07:01)
[2020-01-01] MEDS ORDERED: GLYCOPYRROLATE 0.2 MG/ML VIAL ONE (07:01)
[2020-01-01] MEDS ORDERED: BUPIVACAINE 0.5 % 5 MG/1 ML MPF 30ML VIAL ONE (07:02)
[2020-01-01] MEDS ORDERED: ePHEDrine sulfate 50 MG/ML AMP IV PRN (07:13)
[2020-01-01] MEDS ORDERED: fentaNYL citrate 100 MCG/2 ML VIAL IV PRN (07:13)
[2020-01-01] MEDS ORDERED: HYDROmorphone INJ 1 MG/ML SYRINGE IV PRN (07:13)
[2020-01-01] MEDS ORDERED: ATROPINE SULFATE 0.1 MG/ML 10ML SYR IV PRN (07:13)
[2020-01-01] MEDS ORDERED: ONDANSETRON INJ 2 MG/ML 2 ML VIAL IV PRN ×2 (07:13→09:24)
--- NOTE | 2020-01-01 07:15 | History & Physical Bridge Note ---
Date of Service January 01, 2020 History & Physical Bridge Note I have examined the patient, reviewed the History & Physical and in the interval since the performance of the History & Physical I have noted the following changes of clinical significance: no changes noted
[2020-01-01] MEDS ORDERED: SODIUM CHLORIDE 0.9% 250 ML IV PRN (07:16)
[2020-01-01] MEDS ORDERED: TISSEEL FIBRIN SEALANT 10ML TOP ONE (08:34)
[2020-01-01] MEDS ORDERED: ROCURONIUM BROMIDE 10 MG/ML 5 ML VIAL IV ONE (08:58)
[2020-01-01] MEDS ORDERED: KETOROLAC 30 MG/ML VIAL ONE (09:17)
[2020-01-01] MEDS ORDERED: OXYCODONE/ACETAMINOPHEN 5mg/325mg TAB PO PRN ×2 (09:24)
[2020-01-01] MEDS ORDERED: IBUPROFEN 600 MG TAB PO PRN (09:24)
[2020-01-01] MEDS ORDERED: ACETAMINOPHEN 325 MG TAB PO PRN (09:24)
[2020-01-01] MEDS ORDERED: KETOROLAC 30 MG/ML VIAL IV PRN (09:24)
--- NOTE | 2020-01-01 09:24 | Post Operative Brief Note ---
PG Immediate Post Op with CF Date of Surgery January 01, 2020 Pre & Post Diagnosis Operation Date: 01/01/20 07:30 Pre-Op Diagnosis: Menorrhagia Post-Op Diagnosis: Menorrhagia I identified the patient and participated in the time-out.: Yes Procedure Operation Date: 01/01/20 07:30 Actual Procedures p Robotic Total Laparoscopic Hysterectomy and Cystoscopy(Not Applicable) - Wayne Cruz MD Surgeon Wayne Cruz MD Integrated Circuit Fab[employer]ator None Estimated Blood Loss 15 Findings Consistent with Post-Op Diagnosis Specimens Specimen Description: A. Uterus and cervix Drains Izquierdo Catheter (18 Fr Izquierdo catheter inserted by without difficulty, draining clear yellow urine, Anesthesia to monitor urine output during case. )
--- NOTE | 2020-01-01 16:10 | Anesthesiology Progress Note ---
Date of Service January 01, 2020 Anesthesia Post Procedure Vital Signs Vital Signs: Temp Pulse Pulse Resp BP BP Pulse Ox 01/01/20 12:33 36.6 C 58 L 16 118/76 115/76 100 01/01/20 12:21 36.6 C 58 L 16 118/76 100 01/01/20 11:20 36.6 C 56 L 16 118/73 100 01/01/20 10:50 36.6 C 57 L 16 115/76 100 01/01/20 10:20 36.6 C 54 L 14 120/76 01/01/20 10:05 36.7 C 58 L 16 126/78 100 01/01/20 09:55 62 16 118/74 01/01/20 09:45 67 16 122/70 01/01/20 09:39 36.6 C 86 16 116/70 100 01/01/20 05:53 36.9 C 62 16 120/72 99 Pain Intensity Abdomen: Pain Intensity: 5 Transfer of Care Handoff Completed per policy Notes Mental Status: alert / awake / arousable and participated in evaluation Patient Amnestic to Procedure: Yes Nausea / Vomiting: adequately controlled Pain: adequately controlled Airway Patency, RR, SpO2: stable & adequate BP & HR: stable & adequate Hydration State: stable & adequate Anesthetic Complications: no major complications apparent and Pt Satisfied with anesthetic care
[2020-01-01] MEDS ORDERED: DOCUSATE SODIUM 100 MG CAP PO SCH (21:00)
--- NOTE | 2020-01-03 09:49 | Operative Report (OR) ---
DATE OF OPERATION: 01/01/2020 PROCEDURE: Robotic-assisted total laparoscopic hysterectomy, partial bilateral salpingectomy and cystoscopy. SURGEON: Wayne Cruz MD. PREOPERATIVE DIAGNOSES: 1. Abnormal uterine bleeding. 2. Iron deficiency anemia. POSTOPERATIVE DIAGNOSES: 1. Abnormal uterine bleeding. 2. Iron deficiency anemia. 3. Status post procedure. ESTIMATED BLOOD LOSS: 15 mL DRAINS: Izquierdo catheter. FLUIDS: Continuous lactated ringer. URINE OUTPUT: Per Izquierdo catheter. COMPLICATIONS: None. FINDINGS: There was noted to be a mildly enlarged uterus approximately 9-10 week size uterus, corpus did appear to have stigmata of adenomyosis. Both ovaries were normal appearing. There was only proximal tubal remnants noted with prior tubal ligation. Uterus, cervix and pelvis and abdomen were otherwise unremarkable. DESCRIPTION OF PROCEDURE: The patient was taken to the operating room after consents were ensured. Upon presentation, she was properly identified. General endotracheal anesthesia was obtained without difficulty. The patient was then prepped and draped in normal sterile fashion. Preprocedural timeout was performed. Izquierdo catheter was placed within the bladder and a [email or web address] uterine manipulator was placed per nut sorter operator's specifications. The laparoscopic portion of the case was then initiated. An incision was made in the left upper quadrant to accommodate an 8 mm trocar. A Veress needle was inserted through the incision. Abdomen was insufflated to 15 mmHg. There was noted to be symmetric abdominal rise, tympany over the liver and opening pressure of 6 mmHg, all consistent with appropriate intraabdominal insufflation. An 8 mm trocar was then introduced through the incision and immediate inspection was notable for atraumatic entry. On inspection of the abdomen and pelvis, there were findings as noted above. A 12 mm incision was made at the superior aspect of the umbilicus. A 12 mm trocar was then introduced under direct visualization with atraumatic entry noted. An 8 mm incisions were made in the right and left lower quadrants and trocars were placed under direct visualization with atraumatic entry noted. The robot was then docked at that time to initiate the robotic portion of the case. The left round ligament was then identified, serially cauterized and dissected. The uteroovarian ligament was then identified, serially cauterized, dissected back to the level of the round ligament. A bladder flap was then created starting on the left side, continuing to the midline. The broad ligament was then dissected skeletonizing the uterine vessels. The right round ligament was then identified, serially cauterized and dissected. The uteroovarian ligament was then identified, serially cauterized, dissected back to the level of the round ligament. The bladder flap was then initiated on the right side, connecting to the previously started bladder flap on the left. The bladder flap was then dissected off the lower uterine segment and cervix with clear dissection line and [employer]Care manipulator cup was noted. The broad ligament was then serially cauterized and dissected and skeletonized around the uterine vessels on the right side. Uterine vessels were then serially cauterized and dissected. The colpotomy was then started anteriorly, continued circumferentially around the cervix, freeing the cervix and uterus from the vagina. The uterus was then delivered vaginally and the vaginal cuff was then reapproximated with V-Loc suture in continuous running stitch. A cystoscopy was then performed with bilateral ureteral efflux and intact bladder noted. Tisseel was then placed upon all raw edges and vascular pedicles. Decision was made to end the case at this time. Abdomen was desufflated and trocars were removed. The fascia at the umbilicus was then reapproximated with 0 Vicryl single interrupted stitch. The skin was reapproximated at all incisions with 4-0 Vicryl in single interrupted stitch. Dermabond was placed on top. A 12 mL of Marcaine were distributed throughout the incisions. The patient was then woken from anesthesia and taken to recovery in stable condition. I attest to the content of the Intraoperative Record and any orders documented therein. Any exception s are noted below.
--- NOTE | 2020-01-03 12:11 | Discharge Summary (DS) ---
PROCEDURES WHILE ADMITTED: Total laparoscopic hysterectomy and cystoscopy. HOSPITAL COURSE: The patient was admitted for the above-noted procedure. Procedure was performed without complication. The patient remained in house for recovery until she had meet all postoperative goals. She was discharged the same day as procedure and was discharged home with both written and verbal discharge instructions and in stable condition. The patient was scheduled for followup in 2 weeks and was instructed to call if any issues arose otherwise.
== END 2020-01-01 13:14 | disposition home or self-care (01) ==
LOC: ASU 05:33 → 4S2 05:33